=== PATIENT | female | born 1940 | race Caucasian/White ===

== ENCOUNTER 2019-05-16 14:57 | Outpatient (CLI) | payer MEDICARE, OTHER ==
[2019-05-16 15:24] LABS: BASOPHILS # (AUTO) 0.1 10^3/uL (0.0-0.1); BASOPHILS % (AUTO) 0.7 %; EOSINOPHILS # (AUTO) 0.1 10^3/uL (0.0-0.7); EOSINOPHILS % (AUTO) 1.4 %; HGB - HEMOGLOBIN 13.1 g/dL (12.0-16.0); LYMPHOCYTES # (AUTO) 0.7 10^3/uL (1.5-3.5); LYMPHOCYTES % (AUTO) 10.4 %; MEAN CORPUSCULAR HEMOGLOBIN 37.8 pg (27.0-31.0); MEAN CORPUSCULAR HGB CONC 33.4 g/dL (32.0-36.0); MEAN PLATELET VOLUME 10.6 fL (7.9-10.8); MONOCYTES % (AUTO) 14.2 %; NEUTROPHILS # (AUTO) 5.1 10^3/uL (1.5-6.6); NEUTROPHILS % (AUTO) 72.7 %; PLT - PLATELET COUNT 222 10^3/uL (130-450); RED BLOOD COUNT 3.47 10^6/uL (4.20-5.40); RED CELL DISTRIBUTION WIDTH 16.9 % (12.0-15.0)
[2019-05-16 15:30] LABS: CALCIUM 10.2 mg/dL (8.5-10.3); CREATININE 0.6 mg/dL (0.4-1.0)
[2019-05-16 15:56] LABS: PLATELET ESTIMATE, MANUAL NORMAL (130-450,000) (NORMAL); PLATELET MORPHOLOGY NORMAL APPEARANCE (NORMAL)
== END 2019-05-16 14:58 | disposition home or self-care (01) ==
LOC: LAB 14:57
PROVIDERS: ATTEND Family Medicine
DX: I10 Essential (primary) hypertension (principal)
CPT/HCPCS: 36415; 80048; 85025

== ENCOUNTER 2021-06-23 16:43 | Outpatient (CLI) | payer MEDICARE, OTHER | END 2021-06-23 16:44 | disposition critical access hospital (66) | LOC: EMS 16:43 | DX: R53.1 Weakness (principal); R63.0 Anorexia; R43.9 Unspecified disturbances of smell and taste; R42 Dizziness and giddiness | CPT/HCPCS: A0425; A0429 ==

== ENCOUNTER 2021-06-23 17:06 | Emergency (ER) | payer MEDICARE, OTHER ==
--- NOTE | 2021-06-23 17:19 | ED Physician Documentation ---
History of Present Illness - Stated complaint Stated Complaint: WEAKNESS - Additonal information Additional information: 80-year-old female presents the emergency department for evaluation of abdominal bloating and feeling "crummy". She reports that 3 days ago she had diarrhea. The diarrhea resolved after 5 doses of Imodium but since then she has felt short of air and has had abdominal distention. She is passing flatus and reports a normal bowel movement this morning. However since this episode of diarrhea she just does not feel right. She reports that she has increased shortness of air though she denies chest pain. No leg swelling. Denies that she had any melena or hematochezia. No dysuria urgency or frequency. Past medical history significant for COPD, typically on 2 L nasal cannula. Also has a history of right lung carcinoma status post lobectomy which was curative. Patient did not require chemotherapy or radiation. Former smoker. Review of Systems Constitutional: reports: Myalgias, Fatigue. denies: Fever, Chills Eyes: reports: Reviewed and negative Ears: reports: Reviewed and negative Nose: reports: Reviewed and negative Throat: reports: Reviewed and negative Cardiac: reports: Reviewed and negative Respiratory: reports: Dyspnea. denies: Cough GI: reports: Abdominal Swelling, Diarrhea. denies: Abdominal Pain, Nausea, Vomiting : reports: Reviewed and negative Skin: reports: Reviewed and negative Musculoskeletal: reports: Reviewed and negative Neurologic: reports: Generalized weakness. denies: Focal weakness, Syncope, Seizure, Headache PD PAST MEDICAL HISTORY - Past Medical History Cardiovascular: Hypertension, CA, Atrial fibrillation - Past Surgical History Past Surgical History: Yes Cardiovascular: Pacemaker, Fempop bypass HEENT: Tonsil/Adenoidectomy - Present Medications Home Medications: Ambulatory Orders Medication Instructions Recorded Confirmed Aspirin Chewable [St August 324 mg PO ONCE 06/05/13 06/05/13 Aspirin] Calcium Carb, Gluconate/Vit D2 1 each PO 06/05/13 06/05/13 [Parva-Jesse 500 Tablet] Clopidogrel [Plavix] 75 mg PO DAILY 06/05/13 06/05/13 Furosemide [Lasix] 40 mg PO 06/05/13 06/05/13 Levothyroxine Sodium [Levothroid] 75 mcg PO 06/05/13 06/05/13 Pentoxifylline [Trental] 400 mg PO BID 06/05/13 06/05/13 Phenazopyridine [Pyridium] 100 mg PO TID 6 Days tablet 06/05/13 Potassium Chloride [Klor-Con 10] 20 meq PO 06/05/13 06/05/13 Simvastatin [Zocor] 20 mg PO QPM 06/05/13 06/05/13 Timolol 0.5% Ophth Drops [Timoptic] 1 drops OPTH BID 06/05/13 06/05/13 Travoprost 0.004% Ophth Drops 1 drops OPTH QPM 06/05/13 06/05/13 [Travatan Z] amLODIPine [Norvasc] 5 mg PO ONCE 06/05/13 06/05/13 - Allergies Allergies/Adverse Reactions: Allergies Allergy/AdvReac Type Severity Reaction Status Date / Time cilostazol Allergy diarrhea Verified 06/05/13 14:00 flu vaccination Allergy flu Uncoded 06/05/13 14:00 - Social History Does the pt smoke?: Yes Smoking Status: Current every day smoker Does the pt drink ETOH?: Yes Does the pt have substance abuse?: No PD ED PE EXPANDED - General General: Alert - Cardiac Cardiac: Regular Rate, Murmur Present, Radial strong equal, Pedal strong equal, Cap refill < 2 sec, Other (Paced ECG) - Respiratory Respiratory: Clear to ausultation [place]. No: Distress, Labored - Abdomen Abdomen: Normal Bowel sounds, Distended, Tender to palpation (General abdominal tenderness without focal tenderness guarding or rebound.) - Derm Derm: Normal color, Warm and dry - Extremities Extremities: Normal. No: Deformity, Tenderness - Neuro Neuro: Alert and Oriented X 3, CNII-XII intact - GCS Eye Opening: Spontaneous Motor: Obeys Commands Verbal: Oriented Total: 15 Results - Vitals Vitals: Vital Signs - 24 hr 06/23/21 06/23/21 17:16 19:34 Temperature 36.8 C Heart Rate 61 72 Respiratory 19 20 Rate Blood Pressure 148/66 H 119/45 L O2 Saturation 100 94 Oxygen O2 Source Nasal cannula Oxygen Flow Rate 4 - Labs Labs: Laboratory Tests 06/23/21 06/23/21 06/23/21 17:28 17:28 17:28 WBC 8.2 RBC 2.28 L Hgb 8.3 L Hct 26.2 L MCV 114.9 H MCH 36.4 H MCHC 31.7 L RDW 16.3 H Plt Count 361 MPV 9.1 Neut # (Auto) 5.9 Lymph # (Auto) 0.8 L [place] # (Auto) 1.2 H Eos # (Auto) 0.2 Baso # (Auto) 0.0 Absolute Nucleated RBC 0.00 Nucleated RBC % 0.0 Sodium 132 L Potassium 3.7 Chloride 95 L Carbon Dioxide 28 Anion Gap 9.0 BUN 12 Creatinine 1.0 Estimated GFR (MDRD) 53 L Glucose 121 H Calcium 8.9 Total Bilirubin 2.2 H AST 36 ALT 22 Alkaline Phosphatase 86 Troponin I High Sens 20.9 H* B-Natriuretic Peptide Total Protein 7.3 Albumin 3.7 Globulin 3.6 Albumin/Globulin Ratio 1.0 Lipase 30 Urine Color Urine Clarity Urine pH Ur Specific [place] Urine Protein Urine Glucose (UA) Urine Ketones Urine Occult Blood Urine Nitrite Urine Bilirubin Urine Urobilinogen Ur Leukocyte Esterase Ur Microscopic Review Urine Culture Comments 06/23/21 06/23/21 17:28 17:47 WBC RBC Hgb Hct MCV MCH MCHC RDW Plt Count MPV Neut # (Auto) Lymph # (Auto) [place] # (Auto) Eos # (Auto) Baso # (Auto) Absolute Nucleated RBC Nucleated RBC % Sodium Potassium Chloride Carbon Dioxide Anion Gap BUN Creatinine Estimated GFR (MDRD) Glucose Calcium Total Bilirubin AST ALT Alkaline Phosphatase Troponin I High Sens B-Natriuretic Peptide 381 H Total Protein Albumin Globulin Albumin/Globulin Ratio Lipase Urine Color YELLOW Urine Clarity CLEAR Urine pH 7.5 Ur Specific [place] 1.010 Urine Protein NEGATIVE Urine Glucose (UA) NEGATIVE Urine Ketones NEGATIVE Urine Occult Blood TRACE-LYSE Urine Nitrite NEGATIVE Urine Bilirubin NEGATIVE Urine Urobilinogen 0.2 (NORMAL) Ur Leukocyte Esterase NEGATIVE Ur Microscopic Review NOT INDICATED Urine Culture Comments NOT INDICATED - Rads (name of study) CXR Radiology: Final report received (Cardiomegaly with moderate vascular congestion and small bibasilar pleural effusions) CT abd Radiology: Final report received (Small loculated right-sided pleural fluid collection. Trace left-sided pleural fluid collection. No free fluid or air. No dilated loops of bowel. Appendix is normal. Cardiomegaly. Reflux of contrast into the IVC associated likely with right heart failure. Atherosclerosis in the visualized coronary ) PD MEDICAL DECISION MAKING - ED course Complexity details: reviewed old records, reviewed results, considered differential, d/w patient ED course: 80-year-old female presents emergency department for evaluation of generalized malaise and poor feeling after having diarrhea 3 days ago. At baseline she has a history of COPD as well as lung cancer status post right lobectomy. On 3 L nasal cannula. She does not have any increasing oxygen requirements and no leg swelling. She has not missed any of your doses of medicine. She just generally feels unwell in the absence of chest pain. She is persistently short of breath but not necessarily worse than normal. Chest x-ray suggests volume overload as well as mild pleural effusions. Screening labs do show an elevated BNP but no previous for baseline comparison. CT of the abdomen did not show findings of bowel obstruction significant ascites or any worrisome surgical process. Patient was given extra dose of Lasix here in the emergency department. At this time she does have a history of heart failure and she is found to be significantly anemic but denies any melena. Patient is trying to return to [place] where she lives. I discussed this case with our hospitalist Dr. Bettencourt but there is no admittable diagnosis at this time. She would recommend increasing patient's Lasix for the next few days and follow-up closely with her primary when she returns to [place]. Emergent worrisome return precautions were discussed. Departure - Departure Disposition: 01 Home, Self Care Clinical Impression: CHF (congestive heart failure) Qualifiers: Heart failure type: unspecified Heart failure chronicity: acute on chronic Qualified Code(s): I50.9 - Heart failure, unspecified Anemia Qualifiers: Anemia type: unspecified type Qualified Code(s): D64.9 - Anemia, unspecified Condition: Stable Record reviewed to determine appropriate education?: Yes Comments: Mary Anne tolbert were seen in the emergency department today for feeling poorly after an episode of diarrhea a few days ago. Your screening labs show that you have developed a significant anemia or low blood count. Your hemoglobin is 8.3. This may be contributing to chronic fatigue and feeling poorly. It is very important that you follow-up with your primary care doctor for further evaluation of this anemia. The chest x-ray shows that you do have some mildly worsening heart failure. In order to treat this we are asking that you take 60 mg of Lasix every day for 5 days then please return to your [address] of your abdomen did not show any worrisome findings such as a bowel obstruction, diverticulitis or appendicitis. If at any point you feel that your symptoms are worsening, you have fainting episodes, uncontrolled chest pain then please return immediately to the ER for a 2nd evaluation.
[2021-06-23 17:34] LABS: BASOPHILS % (AUTO) 0.5 %; EOSINOPHILS # (AUTO) 0.2 10^3/uL (0.0-0.7); HCT - HEMATOCRIT 26.2 % (37.0-47.0); HGB - HEMOGLOBIN 8.3 g/dL (12.0-16.0); LYMPHOCYTES # (AUTO) 0.8 10^3/uL (1.5-3.5); LYMPHOCYTES % (AUTO) 9.4 %; MEAN CORPUSCULAR HEMOGLOBIN 36.4 pg (27.0-31.0); MEAN CORPUSCULAR HGB CONC 31.7 g/dL (32.0-36.0); MEAN CORPUSCULAR VOLUME 114.9 fL (81.0-99.0); MEAN PLATELET VOLUME 9.1 fL (7.9-10.8); MONOCYTES # (AUTO) 1.2 10^3/uL (0.0-1.0); MONOCYTES % (AUTO) 14.9 %; NEUTROPHILS # (AUTO) 5.9 10^3/uL (1.5-6.6); NEUTROPHILS % (AUTO) 71.9 %; PLT - PLATELET COUNT 361 10^3/uL (130-450); RED BLOOD COUNT 2.28 10^6/uL (4.20-5.40); RED CELL DISTRIBUTION WIDTH 16.3 % (12.0-15.0); WHITE BLOOD COUNT 8.2 x10^3/uL (4.8-10.8)
[2021-06-23 17:49] LABS: ALBUMIN 3.7 g/dL (3.2-5.5); BILIRUBIN,TOTAL 2.2 mg/dL (0.2-1.0); CALCIUM 8.9 mg/dL (8.5-10.3); POTASSIUM 3.7 mmol/L (3.5-5.0); TOTAL PROTEIN 7.3 g/dL (6.7-8.2)
--- NOTE | 2021-06-23 17:56 | XRAY Report ---
PROCEDURE: Chest 1 View X-Ray INDICATIONS: Chest pain TECHNIQUE: One view of the chest was acquired. COMPARISON: None FINDINGS: Surgical changes and devices: Left-sided dual-chamber pacemaker present. Atrial lead appears medializ ed Lungs and pleura: Heart size is enlarged, and there is a moderate vascular congestion with blunting o f both costophrenic angles. Mediastinum: Mediastinal contours appear normal. Bones and chest wall: No suspicious bony lesions. Overlying soft tissues appear unremarkable. Oste openia IMPRESSION: Cardiomegaly with moderate vascular congestion small bibasilar pleural effusions. Reviewed by: Charbel Trejo MD on 06/23/2021 4:55 PM AKDT Approved by: Charbel Trejo MD on 06/23/2021 4:55 PM AKDT Station ID: [id number]
[2021-06-23 17:58] LABS: BILIRUBIN,URINE NEGATIVE (NEGATIVE); GLUCOSE, URINE (UA) NEGATIVE (NEGATIVE); KETONES,URINE (UA) NEGATIVE (NEGATIVE); LEUKOCYTE ESTERASE, URINE NEGATIVE (NEGATIVE); NITRITE,URINE NEGATIVE (NEGATIVE); OCCULT BLOOD,URINE TRACE-LYSE (NEGATIVE); PH,URINE 7.5 PH (5.0-7.5); PROTEIN,URINE NEGATIVE (NEGATIVE); UROBILINOGEN,URINE 0.2 (NORMAL) E.U./dL (NORMAL)
[2021-06-23 17:59] LABS: CLARITY,URINE CLEAR (CLEAR)
[2021-06-23] MEDS ORDERED: FUROSEMIDE 40 MG/4 ML VIAL IVP STA (18:22)
[2021-06-23] MEDS ORDERED: IOPAMIDOL-300 50 ML VIAL ONE (18:31)
[2021-06-23] MEDS ORDERED: IOPAMIDOL-300 50 ML VIAL IVP ONE (19:57)
--- NOTE | 2021-06-23 19:57 | CT Report ---
PROCEDURE: Abdomen/Pelvis W INDICATIONS: abdominal distention; diarrhea CONTRAST: IV CONTRAST: Isovue 300 ml: 100 PO CONTRAST: *NO PO CONTRAST TECHNIQUE: After the administration of contrast, 5 mm thick sections acquired from the diaphragms to the sym physis. 5 mm thick coronal and sagittal reformats were acquired. For radiation dose reduction, the following was used: automated exposure control, adjustment of mA and/or kV according to patient size . COMPARISON: None. FINDINGS: Image quality: Excellent. ABDOMEN: Lung bases: Small loculated right-sided pleural fluid collection. Trace left-sided pleural fluid vanessa ection. Heart is enlarged. Dense after static secretions noted in the visualized coronary vasculature . Cardiac pacer leads noted. Reflux of contrast material into the IVC and hepatic veins which is a no nspecific finding, but can be associated with right heart failure. Solid organs: Liver and spleen are normal in size and enhancement. Punctate calcifications noted in the spleen compatible sequela prior granulomatous disease. Gallbladder is within normal limits Bilia ry system is non dilated. Pancreas enhances normally. No adrenal nodules. Kidneys demonstrate norm al size and enhancement, without hydronephrosis. Peritoneum and bowel: Bowel loops demonstrate normal wall thickness and caliber. Anastomotic sutures noted at the rectosigmoid junction. No free fluid or air. Appendix is normal. Nodes and vessels: No retroperitoneal or mesenteric adenopathy by size criteria. 3.6 x 3.0 cm proxim al abdominal aortic aneurysm. Scattered atherosclerotic calcifications are noted in the abdominal and pelvic vasculature. Miscellaneous: No ventral hernias. PELVIS: Genitourinary: Bladder wall thickness is normal. Miscellaneous: No inguinal hernias or adenopathy. Bones: No suspicious bony lesions. No vertebral body compression fractures. Spine degenerative disc disease and facet arthropathy are noted. IMPRESSION: 1. Small loculated right-sided pleural fluid collection. Trace left-sided pleural fluid collection. 2. No free fluid or free air. 3. No dilated loops of bowel. 4. Appendix is normal. 5. Cardiomegaly. Reflux of contrast material into the IVC which can be associated with right heart fa ilure. 6. Atherosclerosis including dense atherosclerotic calcifications in the visualized coronary vasculat ure. Reviewed by: Farida Cole MD, PhD on 06/23/2021 7:56 PM PDT Approved by: Farida Cole MD, PhD on 06/23/2021 7:56 PM PDT Station ID: [id number]
[2021-06-23 21:05] VITALS: BP 130/86
== END 2021-06-23 21:31 | disposition home or self-care (01) ==
LOC: EDUNIT# → ED 17:06 → SUPCPDRO 17:06 → ED 21:31
DX: I11.0 Hypertensive heart disease with heart failure (principal); I50.9 Heart failure, unspecified; J90 Pleural effusion, not elsewhere classified; D64.9 Anemia, unspecified; J44.9 Chronic obstructive pulmonary disease, unspecified; Z08 Encounter for follow-up examination after completed treatment for malignant neoplasm; Z85.118 Personal history of other malignant neoplasm of bronchus and lung; Z87.891 Personal history of nicotine dependence; Z95.0 Presence of cardiac pacemaker; Z79.02 Long term (current) use of antithrombotics/antiplatelets; Z79.82 Long term (current) use of aspirin
CPT/HCPCS: 36415; 71045; 74177; 80053; 81003; 83690; 83880; 84484; 85025; 96374; 99284; Q9967; 81001; 87086